=== PATIENT | male | born 2005 | race Caucasian/White ===

== ENCOUNTER 2024-11-11 01:08 | Emergency (ER) | payer SELFPAY ==
[~2024-11-11] VITALS: Ht 180.3 cm; Wt 78.0 kg
[2024-11-11 01:37] VITALS: O2SAT 98
[2024-11-11 01:39] VITALS: BP 117/62; PULSE 64; RESP 16; TEMP 36.7; O2SAT 98
== END 2024-11-11 03:00 | disposition left against medical advice (07) ==
LOC: ER 01:08
DX: M79.652 Pain in left thigh (principal); J45.909 Unspecified asthma, uncomplicated; Z53.21 Procedure and treatment not carried out due to patient leaving prior to being seen by health care provider